=== PATIENT | female | born 2000 | race Caucasian/White ===

== ENCOUNTER 2019-02-12 20:57 | Observation (INO) | payer BC ==
[2019-02-12] MEDS ORDERED: Ondansetron 4 MG/2 ML SDV IVPUSH ONE (21:33)
[2019-02-12] MEDS ORDERED: HYDROmorphone 1 MG/ML Syringe IVPUSH STA (21:33)
--- NOTE | 2019-02-12 21:39 | EDM.PDOC ---
ED HPI GENERAL MEDICAL PROBLEM - General Chief Complaint: Abdominal Pain Stated Complaint: ABDOMINAL PAIN Time Seen by Provider: 02/12/19 21:10 Source of Information: Reports: Patient History Limitations: Reports: No Limitations - History of Present Illness INITIAL COMMENTS - FREE TEXT/NARRATIVE: Ms. Baig is a very pleasant 18-year-old woman with no chronic medical issues and no past surgical history, who states that she developed sharp right upper quadrant and epigastric pain around noon today, after eating ramen noodles for lunch around 11:30 to noon. The pain waxed and waned over the course of the day , then increased, along with having nausea and vomiting, after eating tacos from 16:30 to 17:00. Since then, the patient has been experiencing far right upper abdominal pain, sharp in character, with occasional radiation across her upper abdomen. At present, she states that the pain is dull, with occasional sharp exacerbations whenever she takes a deep breath or lies completely supine. No recent fever. She has had watery diarrhea since 17:00 today, but no recent constipation. No urinary symptoms or gross hematuria. No prior similar symptoms. LMP 01/26/2019 or 01/27/2019. The patient has not eaten since 17:00 today. The patient does not have a PCP. She has not received an influenza vaccine this season, but agreed to receive one here. Right Abdomen Pain Score (Numeric/FACES): 3 - Related Data Allergies Allergy/AdvReac Type Severity Reaction Status Date / Time No Known Allergies Allergy Verified 02/12/19 21:07 Home Meds: Home Meds . [No Known Home Meds] 02/12/19 [History] Past Medical History Endocrine/Metabolic History: Reports: Obesity/BMI 30+ Social & Family History - Tobacco Use Smoking Status *Q: Never Smoker - Caffeine Use Caffeine Use: Reports: Coffee, Soda - Alcohol Use Alcohol Use History: Yes Alcohol Use Frequency: Socially - Recreational Drug Use Recreational Drug Use: No - Living Situation & Occupation Living situation: Reports: Single, with Family Occupation: Student ([employer]) ED ROS GENERAL - Review of Systems Review Of Systems: Comprehensive ROS is negative, except as noted in HPI. ED EXAM, GI/ABD - Physical Exam Exam: See Below Exam Limited By: No Limitations General Appearance: Alert, WD/WN, No Apparent Distress Eyes: Bilateral: Normal Appearance, EOMI Ears: Normal External Exam, Hearing Grossly Normal Nose: Normal Inspection Throat/Mouth: Normal Inspection, Normal Lips, Normal Voice, No Airway Compromise Head: Atraumatic, Normocephalic Neck: Normal Inspection, Full Range of Motion Respiratory/Chest: No Respiratory Distress, Lungs Clear, Normal Breath Sounds, No Accessory Muscle Use Cardiovascular: Normal Peripheral Pulses, Regular Rate, Rhythm, No Gallop, No JVD, No Murmur, No Rub GI/Abdominal Exam: Normal Bowel Sounds, Soft, No Organomegaly, No Distention, No Abnormal Bruit, No Mass, Tender (Far-right upper quadrant only. Caldera's sign negative. Nontender elsewhere.) (Female) Exam: Deferred Rectal (Female) Exam: Deferred Back Exam: Normal Inspection, Full Range of Motion. No: CVA Tenderness (L), CVA Tenderness (R) Extremities: Normal Inspection, Normal Range of Motion, No Pedal Edema, Normal Capillary Refill Neurological: Alert, Oriented, Normal Cognition, No Motor/Sensory Deficits Psychiatric: Normal Affect Skin Exam: Warm, Dry, Intact, Normal Color, No Rash Course - Vital Signs Last Recorded V/S: Last Vital Signs Temp 36.8 C 02/12/19 21:05 Pulse 111 H 02/12/19 21:05 Resp 16 02/12/19 21:05 BP 138/82 02/12/19 21:05 Pulse Ox 99 02/12/19 21:05 - Orders/Labs/Meds Orders: Active Orders 24 hr Category Date Time Status Influenza Vaccine Charge [RC] .DISCHARGE Care 02/12/19 21:35 Active Abdomen Pelvis w Cont [CT] Stat Exams 02/12/19 21:33 Taken Sodium Chloride 0.9% [Normal Saline] 1,000 ml Med 02/12/19 21:45 Active IV ASDIRECTED Sodium Chloride 0.9% [Saline Flush] Med 02/12/19 21:41 Active 10 ml FLUSH ONETIME PRN Medication Orders Sodium Chloride (Normal Saline) 1,000 mls @ 150 mls/hr IV ASDIRECTED LIBERTAD Last Admin: 02/12/19 21:46 Dose: 150 mls/hr Sodium Chloride (Saline Flush) 10 ml FLUSH ONETIME PRN PRN Reason: KEEP VEIN OPEN Last Admin: 02/12/19 23:17 Dose: 10 ml Admin: 02/12/19 22:59 Dose: 10 ml Labs: Laboratory Tests 02/12/19 02/12/19 02/12/19 Range/Units 21:44 21:44 22:39 WBC 16.64 H (3.98-10.04) K/mm3 RBC 5.21 (3.98-5.22) M/mm3 Hgb 15.4 (11.2-15.7) gm/dl Hct 44.2 (34.1-44.9) % MCV 84.8 (79.4-94.8) fl MCH 29.6 (25.6-32.2) pg MCHC 34.8 (32.2-35.5) g/dl RDW Std Deviation 35.6 L (36.4-46.3) fL Plt Count 185 (182-369) K/mm3 MPV 9.9 (9.4-12.3) fl Neutrophils % (Manual) 78 H (40-60) % Band Neutrophils % 10 (0-10) % Lymphocytes % (Manual) 10 L (20-40) % Atypical Lymphs % 0 % Monocytes % (Manual) 2 (2-10) % Eosinophils % (Manual) 0 L (0.7-5.8) % Basophils % (Manual) 0 L (0.1-1.2) Platelet Estimate Adequate RBC Morph Comment Normal Sodium 141 (136-145) mEq/L Potassium 3.6 (3.5-5.1) mEq/L Chloride 103 (98-107) mEq/L Carbon Dioxide 26 (21-32) mEq/L Anion Gap 15.6 H (5-15) BUN 10 (7-18) mg/dL Creatinine 0.8 (0.55-1.02) mg/dL Est Cr Clr Drug Dosing 109.08 mL/min Estimated GFR (MDRD) > 60 (>60) mL/min BUN/Creatinine Ratio 12.5 L (14-18) Glucose 100 (74-106) mg/dL Calcium 9.0 (8.5-10.1) mg/dL Total Bilirubin 0.6 (0.2-1.0) mg/dL AST 18 (15-37) U/L ALT 27 (14-59) U/L Alkaline Phosphatase 61 (46-116) U/L Total Protein 8.1 (6.4-8.2) g/dl Albumin 4.5 (3.4-5.0) g/dl Globulin 3.6 gm/dL Albumin/Globulin Ratio 1.3 (1-2) Lipase 109 (73-393) U/L Urine Color Yellow (Yellow) Urine Appearance Clear (Clear) Urine pH 6.5 (5.0-8.0) Ur Specific [place] > or = 1.030 (1.005-1.030) Urine Protein Negative (Negative) Urine Glucose (UA) Negative (Negative) Urine Ketones 3+ H (Negative) Urine Occult Blood Negative (Negative) Urine Nitrite Negative (Negative) Urine Bilirubin Negative (Negative) Urine Urobilinogen 1.0 (0.2-1.0) Ur Leukocyte Esterase Negative (Negative) Urine RBC 0-5 (0-5) /hpf Urine WBC 0-5 (0-5) /hpf Ur Squamous Epith Cells 0-5 (0-5) /hpf Urine Bacteria Few (FEW) /hpf Urine Mucus Few (FEW) /hpf Urine HCG, Qual (NEGATIVE) 02/12/19 Range/Units 22:39 WBC (3.98-10.04) K/mm3 RBC (3.98-5.22) M/mm3 Hgb (11.2-15.7) gm/dl Hct (34.1-44.9) % MCV (79.4-94.8) fl MCH (25.6-32.2) pg MCHC (32.2-35.5) g/dl RDW Std Deviation (36.4-46.3) fL Plt Count (182-369) K/mm3 MPV (9.4-12.3) fl Neutrophils % (Manual) (40-60) % Band Neutrophils % (0-10) % Lymphocytes % (Manual) (20-40) % Atypical Lymphs % % Monocytes % (Manual) (2-10) % Eosinophils % (Manual) (0.7-5.8) % Basophils % (Manual) (0.1-1.2) Platelet Estimate RBC Morph Comment Sodium (136-145) mEq/L Potassium (3.5-5.1) mEq/L Chloride (98-107) mEq/L Carbon Dioxide (21-32) mEq/L Anion Gap (5-15) BUN (7-18) mg/dL Creatinine (0.55-1.02) mg/dL Est Cr Clr Drug Dosing mL/min Estimated GFR (MDRD) (>60) mL/min BUN/Creatinine Ratio (14-18) Glucose (74-106) mg/dL Calcium (8.5-10.1) mg/dL Total Bilirubin (0.2-1.0) mg/dL AST (15-37) U/L ALT (14-59) U/L Alkaline Phosphatase (46-116) U/L Total Protein (6.4-8.2) g/dl Albumin (3.4-5.0) g/dl Globulin gm/dL Albumin/Globulin Ratio (1-2) Lipase (73-393) U/L Urine Color (Yellow) Urine Appearance (Clear) Urine pH (5.0-8.0) Ur Specific [place] (1.005-1.030) Urine Protein (Negative) Urine Glucose (UA) (Negative) Urine Ketones (Negative) Urine Occult Blood (Negative) Urine Nitrite (Negative) Urine Bilirubin (Negative) Urine Urobilinogen (0.2-1.0) Ur Leukocyte Esterase (Negative) Urine RBC (0-5) /hpf Urine WBC (0-5) /hpf Ur Squamous Epith Cells (0-5) /hpf Urine Bacteria (FEW) /hpf Urine Mucus (FEW) /hpf Urine HCG, Qual Negative (NEGATIVE) Meds: Medications Generic Name Dose Route Start Last Admin Trade Name Fremarcio PRN Reason Stop Dose Admin Sodium Chloride 1,000 mls @ 150 mls/hr 02/12/19 21:45 02/12/19 21:46 Normal Saline IV 150 mls/hr ASDIRECTED LIBERTAD Administration Sodium Chloride 10 ml 02/12/19 21:41 02/12/19 23:17 Saline Flush FLUSH 10 ml ONETIME PRN Administration KEEP VEIN OPEN Discontinued Medications Generic Name Dose Route Start Last Admin Trade Name Freq PRN Reason Stop Dose Admin Diatrizoate Meglum/Diatrizoate Sod 60 ml 02/12/19 21:41 02/12/19 22:59 Gastrografin 37% PO 02/12/19 21:42 60 ml ONETIME ONE Administration Hydromorphone HCl 0.5 mg 02/12/19 21:33 02/12/19 21:47 Dilaudid IVPUSH 02/12/19 21:34 0.5 mg ONETIME STA Administration Influenza Virus Vaccine 1 each 02/12/19 21:34 Pharmacy To Dose - Influenza Vaccine IM 02/12/19 21:35 ONETIME ONE Influenza Virus Vaccine 60 mcg 02/12/19 22:00 02/12/19 23:14 Fluzone Quad [id number] Syringe IM 02/12/19 22:01 60 mcg .ONCE ONE Administration Iopamidol 100 ml 02/12/19 21:41 02/12/19 22:59 Isovue-300 (61%) IVPUSH 02/12/19 21:42 100 ml ONETIME ONE Administration Ondansetron HCl 4 mg 02/12/19 21:33 02/12/19 21:46 Zofran IVPUSH 02/12/19 21:34 4 mg ONETIME ONE Administration - Re-Assessments/Exams Free Text/Narrative Re-Assessment/Exam: 02/12/19 21:35 The patient's history and physical examination are most consistent with her pain being due to cholecystitis, although other possibilities, including appendicitis, an unusual presentation of a ruptured ovarian cyst, or epiploic appendagitis are possibilities. Since it has only been about 4-1/2 hours since the patient last ate, an ultrasound of the right upper quadrant is not possible at this time. I have therefore ordered a CT of the abdomen and pelvis with oral and IV contrast, along with blood work, a urinalysis, and a urine test. In the meantime, the patient will be given IV Dilaudid, IV Zofran, and IV fluid. 02/12/19 23:20 Contacted by the [facility] Radiologist, who informed me that he believes the patient has appendicitis. Formal report is pending. 02/12/19 23:23 The patient's CBC is remarkable for a WBC count of 16.64 with 10% bandemia and 78% neutrophilia. The remainder of her CBC is unremarkable. Her CMP is unremarkable. Her lipase is within normal limits at 109. Her urinalysis is unremarkable. Her urine test is unremarkable. CT of the abdomen and pelvis with oral and IV contrast is read by [facility] as "Findings are suspicious for appendicitis. No evidence for perforation, small bowel obstruction, or abscess." 02/12/19 23:[address] Urias at 23:28. He asked that we give the patient 1 g of IV Invanz, then admit her to the hospital, where she will remain NPO, receive pain medication and IV Zofran as needed, along with IV fluid. He will see her, and presumably take her to the OR, in the morning. 02/12/19 23:35 The above was discussed with the patient and her boyfriend. She is agreeable to the plan. Departure - Departure Time of Disposition: 23:36 Disposition: Refer to Observation Condition: Good Clinical Impression: Acute appendicitis - Discharge Information *PRESCRIPTION DRUG MONITORING PROGRAM REVIEWED*: Not Applicable *COPY OF PRESCRIPTION DRUG MONITORING REPORT IN PATIENT MALU: Not Applicable Referrals: Jemal Urias MD [Physician] - Sepsis Event Note - Evaluation Sepsis Screening Result: No Definite Risk - Focused Exam Vital Signs: Vital Signs Temp Pulse Resp BP Pulse Ox 02/12/19 21:05 36.8 C 111 H 16 138/82 99 Date Exam was Performed: 02/12/19 Time Exam was Performed: 23:31 - My Orders Last 24 Hours: My Active Orders 02/12/19 21:33 Abdomen Pelvis w Cont [CT] Stat 02/12/19 21:35 Influenza Vaccine Charge [RC] .DISCHARGE 02/12/19 21:41 Sodium Chloride 0.9% [Saline Flush] 10 ml FLUSH ONETIME PRN 02/12/19 21:45 Sodium Chloride 0.9% [Normal Saline] 1,000 ml IV ASDIRECTED - Assessment/Plan Last 24 Hours: My Active Orders 02/12/19 21:33 Abdomen Pelvis w Cont [CT] Stat 02/12/19 21:35 Influenza Vaccine Charge [RC] .DISCHARGE 02/12/19 21:41 Sodium Chloride 0.9% [Saline Flush] 10 ml FLUSH ONETIME PRN 02/12/19 21:45 Sodium Chloride 0.9% [Normal Saline] 1,000 ml IV ASDIRECTED
[2019-02-12] MEDS ORDERED: Diatrizoate Meglumine/Diatrizoate Sodium 37% 120 ML Bottle PO ONE (21:41)
[2019-02-12] MEDS ORDERED: Iopamidol 612 MG/ML 100 ML Bottle IVPUSH ONE (21:41)
[2019-02-12] MEDS: Sodium Chloride 0.9% 1,000 ML IV SCH (21:46)
[2019-02-12] MEDS ORDERED: FLU Vacc QS2019-20(6MOS+)/PF 60 MCG/0.5 ML SYRINGE IM ONE (22:00)
[2019-02-12] MEDS: Sodium Chloride 0.9% 10 ML Syringe FLUSH PRN ×2 (22:59→23:17)
[2019-02-12] MEDS ORDERED: Ertapenem 1 GM in Sodium Chloride 0.9% 50 ML IV STA (23:31)
[2019-02-13] MEDS ORDERED: Ondansetron 4 MG/2 ML SDV IVPUSH PRN (00:29)
[2019-02-13] MEDS: HYDROmorphone 0.5 MG/0.5 ML Syringe IVPUSH PRN ×2 (01:02→09:07)
[2019-02-13] MEDS: Sodium Chloride 0.9% 1,000 ML IV SCH (04:26)
--- NOTE | 2019-02-13 07:49 | CT ---
CT abdomen and pelvis Technique: Multiple axial sections were obtained from above the dome of the diaphragm inferiorly through the pubic symphysis. Intravenous contrast and oral contrast was utilized. Comparison: No previous abdominal imaging is available. Findings: Portions of the proximal appendix are increased in size with mild surrounding inflammatory change. Distal appendix appears normal in size. Findings suspicious for early appendicitis. Other findings: Visualized lung bases show nothing acute. Liver and spleen appear within normal limits. Pancreas is within normal limits. Gallbladder contains no calcified gallstones. Kidneys show symmetric contrast enhancement. No hydronephrosis or mass is appreciated. Small low density finding noted within the mid left kidney measuring 3 mm which is too small to characterize but most likely represents a small cyst. Adrenal glands show no nodule. Gallbladder contains no calcified gallstones. Aorta shows no aneurysm. No retroperitoneal adenopathy or mesenteric abnormality is seen. Slightly prominent free fluid noted within the pelvis. No additional pelvic abnormality is appreciated. Bone window settings were reviewed. No acute osseous finding is appreciated. Impression: 1. Findings suspicious for early appendicitis. Please correlate if this matches the patient's clinical symptoms. 2. Fair amount of free fluid within the pelvis. This may be reactive fluid from the presumed early appendicitis, this could also represent nonvisualized ruptured adnexal cyst. 3. Other finding believed to be incidental as noted above. Diagnostic code #5 This report was dictated in [place] Standard Time I agree with preliminary report from [facility], finalized on 02/13/19, 12:20 AM Central Time
--- NOTE | 2019-02-13 08:21 | PCM.CONS ---
H&P History of Present Illness - General Date of Service: 02/13/19 Admit Problem/Dx: Admission Diagnosis/Problem Admission Diagnosis/Problem Acute appendicitis Source of Information: Patient History Limitations: Reports: No Limitations - History of Present Illness Initial Comments - Free Text/Narative: The patient started having right sided abdominal pain yesterday afternoon. Pain was cramping, sharp, 5/10 initially. At 5 am she ate and her pain worsened and was associated with nausea and vomiting. The pain at this time was more localized in the right lower abdomen. Denies any prior surgeries. Patient presented to the ED where WBC was 16K, CT was concerning for acute appendicitis. I was consulted and recommended IV abx and appendectomy. Onset of Symptoms: Reports: Sudden Duration of Symptoms: Reports: Hour(s):, Getting Worse Location: Reports: Abdomen Quality: Reports: Sharp Severity: Moderate Improves with: Reports: Immobilization Worsens with: Reports: Eating, Movement Associated Symptoms: Reports: Nausea/Vomiting Right Abdomen Pain Score (Numeric/FACES): 5 - Related Data Allergies/Adverse Reactions: Allergies Allergy/AdvReac Type Severity Reaction Status Date / Time No Known Allergies Allergy Verified 02/13/19 00:43 Home Medications: Home Meds . [No Known Home Meds] 02/12/19 [History] Past Medical History - Past Health History Medical/Surgical History: Denies Medical/Surgical History Endocrine/Metabolic History: Reports: Obesity/BMI 30+ Social & Family History - Family History Cardiac: Reports: Hypertension Endocrine/Metabolic: Reports: Diabetes, type II Other Endocrine/Metabolic Family History: mom's side of family - Tobacco Use Smoking Status *Q: Never Smoker Second Hand Smoke Exposure: No - Caffeine Use Caffeine Use: Reports: Coffee, Tea - Recreational Drug Use Recreational Drug Use: No - Living Situation & Occupation Living situation: Reports: Single, with Family Occupation: Student ([employer]) H&P Review of Systems - Review of Systems: Review Of Systems: See Below General: Reports: No Symptoms HEENT: Reports: No Symptoms Pulmonary: Reports: No Symptoms Cardiovascular: Reports: No Symptoms Gastrointestinal: Reports: Abdominal Pain Genitourinary: Reports: No Symptoms Musculoskeletal: Reports: No Symptoms Skin: Reports: No Symptoms Psychiatric: Reports: No Symptoms Neurological: Reports: No Symptoms Exam - Exam Exam: See Below - Vital Signs Vital Signs: Last Vital Signs Temp 98.2 F 02/13/19 03:23 Pulse 103 H 02/13/19 03:23 Resp 20 02/13/19 03:23 BP 116/61 02/13/19 03:23 Pulse Ox 96 02/13/19 03:23 Weight: 101.741 kg - Exam General: Alert, Oriented, Cooperative, Mild Distress HEENT: Conjunctiva Clear Cardiovascular: Regular Rate, Regular Rhythm, Normal S1, Normal S2 GI/Abdominal Exam: Normal Bowel Sounds, Soft, No Organomegaly, No Distention, Tender (RLQ) - Patient Data Lab Results Last 24 hrs: Laboratory Results - last 24 hr 02/12/19 02/12/19 02/12/19 Range/Units 21:44 21:44 22:39 WBC 16.64 H (3.98-10.04) K/mm3 RBC 5.21 (3.98-5.22) M/mm3 Hgb 15.4 (11.2-15.7) gm/dl Hct 44.2 (34.1-44.9) % MCV 84.8 (79.4-94.8) fl MCH 29.6 (25.6-32.2) pg MCHC 34.8 (32.2-35.5) g/dl RDW Std Deviation 35.6 L (36.4-46.3) fL Plt Count 185 (182-369) K/mm3 MPV 9.9 (9.4-12.3) fl Neutrophils % (Manual) 78 H (40-60) % Band Neutrophils % 10 (0-10) % Lymphocytes % (Manual) 10 L (20-40) % Atypical Lymphs % 0 % Monocytes % (Manual) 2 (2-10) % Eosinophils % (Manual) 0 L (0.7-5.8) % Basophils % (Manual) 0 L (0.1-1.2) Platelet Estimate Adequate RBC Morph Comment Normal Sodium 141 (136-145) mEq/L Potassium 3.6 (3.5-5.1) mEq/L Chloride 103 (98-107) mEq/L Carbon Dioxide 26 (21-32) mEq/L Anion Gap 15.6 H (5-15) BUN 10 (7-18) mg/dL Creatinine 0.8 (0.55-1.02) mg/dL Est Cr Clr Drug Dosing 109.08 mL/min Estimated GFR (MDRD) > 60 (>60) mL/min BUN/Creatinine Ratio 12.5 L (14-18) Glucose 100 (74-106) mg/dL Calcium 9.0 (8.5-10.1) mg/dL Total Bilirubin 0.6 (0.2-1.0) mg/dL AST 18 (15-37) U/L ALT 27 (14-59) U/L Alkaline Phosphatase 61 (46-116) U/L Total Protein 8.1 (6.4-8.2) g/dl Albumin 4.5 (3.4-5.0) g/dl Globulin 3.6 gm/dL Albumin/Globulin Ratio 1.3 (1-2) Lipase 109 (73-393) U/L Urine Color Yellow (Yellow) Urine Appearance Clear (Clear) Urine pH 6.5 (5.0-8.0) Ur Specific [place] > or = 1.030 (1.005-1.030) Urine Protein Negative (Negative) Urine Glucose (UA) Negative (Negative) Urine Ketones 3+ H (Negative) Urine Occult Blood Negative (Negative) Urine Nitrite Negative (Negative) Urine Bilirubin Negative (Negative) Urine Urobilinogen 1.0 (0.2-1.0) Ur Leukocyte Esterase Negative (Negative) Urine RBC 0-5 (0-5) /hpf Urine WBC 0-5 (0-5) /hpf Ur Squamous Epith Cells 0-5 (0-5) /hpf Urine Bacteria Few (FEW) /hpf Urine Mucus Few (FEW) /hpf Urine HCG, Qual (NEGATIVE) 02/12/19 Range/Units 22:39 WBC (3.98-10.04) K/mm3 RBC (3.98-5.22) M/mm3 Hgb (11.2-15.7) gm/dl Hct (34.1-44.9) % MCV (79.4-94.8) fl MCH (25.6-32.2) pg MCHC (32.2-35.5) g/dl RDW Std Deviation (36.4-46.3) fL Plt Count (182-369) K/mm3 MPV (9.4-12.3) fl Neutrophils % (Manual) (40-60) % Band Neutrophils % (0-10) % Lymphocytes % (Manual) (20-40) % Atypical Lymphs % % Monocytes % (Manual) (2-10) % Eosinophils % (Manual) (0.7-5.8) % Basophils % (Manual) (0.1-1.2) Platelet Estimate RBC Morph Comment Sodium (136-145) mEq/L Potassium (3.5-5.1) mEq/L Chloride (98-107) mEq/L Carbon Dioxide (21-32) mEq/L Anion Gap (5-15) BUN (7-18) mg/dL Creatinine (0.55-1.02) mg/dL Est Cr Clr Drug Dosing mL/min Estimated GFR (MDRD) (>60) mL/min BUN/Creatinine Ratio (14-18) Glucose (74-106) mg/dL Calcium (8.5-10.1) mg/dL Total Bilirubin (0.2-1.0) mg/dL AST (15-37) U/L ALT (14-59) U/L Alkaline Phosphatase (46-116) U/L Total Protein (6.4-8.2) g/dl Albumin (3.4-5.0) g/dl Globulin gm/dL Albumin/Globulin Ratio (1-2) Lipase (73-393) U/L Urine Color (Yellow) Urine Appearance (Clear) Urine pH (5.0-8.0) Ur Specific [place] (1.005-1.030) Urine Protein (Negative) Urine Glucose (UA) (Negative) Urine Ketones (Negative) Urine Occult Blood (Negative) Urine Nitrite (Negative) Urine Bilirubin (Negative) Urine Urobilinogen (0.2-1.0) Ur Leukocyte Esterase (Negative) Urine RBC (0-5) /hpf Urine WBC (0-5) /hpf Ur Squamous Epith Cells (0-5) /hpf Urine Bacteria (FEW) /hpf Urine Mucus (FEW) /hpf Urine HCG, Qual Negative (NEGATIVE) Result Diagrams: 02/12/19 21:44 02/12/19 21:44 Sepsis Event Note - Evaluation Sepsis Screening Result: Sepsis Risk - Focused Exam Vital Signs: Vital Signs Temp Temp Pulse Pulse Resp BP BP 02/13/19 03:23 98.2 F 103 H 20 116/61 02/13/19 00:40 99.7 F 108 H 24 H 132/72 02/12/19 21:05 98.2 F 111 H 16 138/82 Pulse Ox 01/06/20 03:23 96 02/13/19 00:40 98 02/12/19 21:05 99 Date Exam was Performed: 02/13/19 Time Exam was Performed: 08:15 Consult PN Assessment/Plan Problem List Initiated/Reviewed/Updated: No My Orders Last 24 Hours: My Active Orders 02/13/19 00:29 Bedrest Bathroom Privileges [RC] ASDIRECTED HYDROmorphone [Dilaudid] 0.5 mg IVPUSH Q2H PRN Ondansetron [Zofran] 4 mg IVPUSH Q6HR PRN Resuscitation Status Routine 02/13/19 Breakfast Nothing per Oral Now Diet [DIET] Plan: Patient has acute appendicitis. I recommended laparoscopic appendectomy, possible open. Risks, benefits and alternatives were discussed, all questions were answered and informed consent was obtained.
--- NOTE | 2019-02-13 09:22 | PCM.PREANE ---
Preanesthetic Assessment - Anesthesia/Transfusion/Family Hx Anesthesia History: No Prior Anesthesia Family History of Anesthesia Reaction: No Transfusion History: No Prior Transfusion(s) - Review of Systems General: No Symptoms Pulmonary: No Symptoms Cardiovascular: No Symptoms Gastrointestinal: Abdominal Pain Neurological: No Symptoms Other: Reports: None - Physical Assessment NPO Status Date: 02/12/19 NPO Status Time: 23:00 Vital Signs: Last Vital Signs Temp 36.8 C 02/13/19 03:23 Pulse 103 H 02/13/19 03:23 Resp 20 02/13/19 03:23 BP 116/61 02/13/19 03:23 Pulse Ox 96 02/13/19 03:23 Height: 1.7 m Weight: 101.741 kg ASA Class: 1 Mental Status: Alert & Oriented x3 Airway Class: Mallampati = 2 Dentition: Reports: Normal Dentition Thyro-Mental Finger Breadths: 3 Mouth Opening Finger Breadths: 3 ROM/Head Extension: Full Lungs: Clear to Auscultation, Normal Respiratory Effort - Lab Values: Laboratory Last Values WBC 16.64 K/mm3 (3.98-10.04) H 02/12/19 21:44 RBC 5.21 M/mm3 (3.98-5.22) 02/12/19 21:44 Hgb 15.4 gm/dl (11.2-15.7) 02/12/19 21:44 Hct 44.2 % (34.1-44.9) 02/12/19 21:44 MCV 84.8 fl (79.4-94.8) 02/12/19 21:44 MCH 29.6 pg (25.6-32.2) 02/12/19 21:44 MCHC 34.8 g/dl (32.2-35.5) 02/12/19 21:44 RDW Std Deviation 35.6 fL (36.4-46.3) L 02/12/19 21:44 Plt Count 185 K/mm3 (182-369) 02/12/19 21:44 MPV 9.9 fl (9.4-12.3) 02/12/19 21:44 Neutrophils % (Manual) 78 % (40-60) H 02/12/19 21:44 Band Neutrophils % 10 % (0-10) 02/12/19 21:44 Lymphocytes % (Manual) 10 % (20-40) L 02/12/19 21:44 Atypical Lymphs % 0 % 02/12/19 21:44 Monocytes % (Manual) 2 % (2-10) 02/12/19 21:44 Eosinophils % (Manual) 0 % (0.7-5.8) L 02/12/19 21:44 Basophils % (Manual) 0 (0.1-1.2) L 02/12/19 21:44 Platelet Estimate Adequate 02/12/19 21:44 RBC Morph Comment Normal 02/12/19 21:44 Sodium 141 mEq/L (136-145) 02/12/19 21:44 Potassium 3.6 mEq/L (3.5-5.1) 02/12/19 21:44 Chloride 103 mEq/L (98-107) 02/12/19 21:44 Carbon Dioxide 26 mEq/L (21-32) 02/12/19 21:44 Anion Gap 15.6 (5-15) H 02/12/19 21:44 BUN 10 mg/dL (7-18) 02/12/19 21:44 Creatinine 0.8 mg/dL (0.55-1.02) 02/12/19 21:44 Est Cr Clr Drug Dosing 109.08 mL/min 02/12/19 21:44 Estimated GFR (MDRD) > 60 mL/min (>60) 02/12/19 21:44 BUN/Creatinine Ratio 12.5 (14-18) L 02/12/19 21:44 Glucose 100 mg/dL (74-106) 02/12/19 21:44 Calcium 9.0 mg/dL (8.5-10.1) 02/12/19 21:44 Total Bilirubin 0.6 mg/dL (0.2-1.0) 02/12/19 21:44 AST 18 U/L (15-37) 02/12/19 21:44 ALT 27 U/L (14-59) 02/12/19 21:44 Alkaline Phosphatase 61 U/L (46-116) 02/12/19 21:44 Total Protein 8.1 g/dl (6.4-8.2) 02/12/19 21:44 Albumin 4.5 g/dl (3.4-5.0) 02/12/19 21:44 Globulin 3.6 gm/dL 02/12/19 21:44 Albumin/Globulin Ratio 1.3 (1-2) 02/12/19 21:44 Lipase 109 U/L (73-393) 02/12/19 21:44 Urine Color Yellow (Yellow) 02/12/19 22:39 Urine Appearance Clear (Clear) 02/12/19 22:39 Urine pH 6.5 (5.0-8.0) 02/12/19 22:39 Ur Specific [place] > or = 1.030 (1.005-1.030) 02/12/19 22:39 Urine Protein Negative (Negative) 02/12/19 22:39 Urine Glucose (UA) Negative (Negative) 02/12/19 22:39 Urine Ketones 3+ (Negative) H 02/12/19 22:39 Urine Occult Blood Negative (Negative) 02/12/19 22:39 Urine Nitrite Negative (Negative) 02/12/19 22:39 Urine Bilirubin Negative (Negative) 02/12/19 22:39 Urine Urobilinogen 1.0 (0.2-1.0) 02/12/19 22:39 Ur Leukocyte Esterase Negative (Negative) 02/12/19 22:39 Urine RBC 0-5 /hpf (0-5) 02/12/19 22:39 Urine WBC 0-5 /hpf (0-5) 02/12/19 22:39 Ur Squamous Epith Cells 0-5 /hpf (0-5) 02/12/19 22:39 Urine Bacteria Few /hpf (FEW) 02/12/19 22:39 Urine Mucus Few /hpf (FEW) 02/12/19 22:39 Urine HCG, Qual Negative (NEGATIVE) 02/12/19 22:39 - Allergies Allergies/Adverse Reactions: Allergies Allergy/AdvReac Type Severity Reaction Status Date / Time No Known Allergies Allergy Verified 02/13/19 00:43 - Acknowledgements Anesthesia Type Planned: General Anesthesia Pt an Appropriate Candidate for the Planned Anesthesia: Yes Alternatives and Risks of Anesthesia Discussed w Pt/Guardian: Yes Pt/Guardian Understands and Agrees with Anesthesia Plan: Yes PreAnesthesia Questionnaire - Past Health History Medical/Surgical History: Denies Medical/Surgical History HEENT History: Reports: None Cardiovascular History: Reports: None Respiratory History: Reports: None Gastrointestinal History: Reports: None Genitourinary History: Reports: None LMP (Approximate): Other (See Below) (HCG 20 negative) Musculoskeletal History: Reports: None Neurological History: Reports: None Psychiatric History: Reports: None Endocrine/Metabolic History: Reports: Obesity/BMI 30+ Hematologic History: Reports: None Immunologic History: Reports: None Oncologic (Cancer) History: Reports: None - SUBSTANCE USE Smoking Status *Q: Never Smoker Second Hand Smoke Exposure: No Recreational Drug Use History: No - HOME MEDS Home Medications: Home Meds . [No Known Home Meds] 02/12/19 [History] - CURRENT (IN HOUSE) MEDS Current Meds: Current Medications Hydromorphone HCl (Dilaudid) 0.5 mg IVPUSH Q2H PRN PRN Reason: Pain (moderate 4-6) Last Admin: 02/13/19 09:07 Dose: 0.5 mg Sodium Chloride (Normal Saline) 1,000 mls @ 150 mls/hr IV ASDIRECTED [facility] Last Admin: 02/13/19 04:26 Dose: 150 mls/hr Ondansetron HCl (Zofran) 4 mg IVPUSH Q6HR PRN PRN Reason: Nausea Sodium Chloride (Saline Flush) 10 ml FLUSH ONETIME PRN PRN Reason: KEEP VEIN OPEN Last Admin: 02/12/19 23:17 Dose: 10 ml Discontinued Medications Diatrizoate Meglum/Diatrizoate Sod (Gastrografin 37%) 60 ml PO ONETIME ONE Stop: 02/12/19 21:42 Last Admin: 02/12/19 22:59 Dose: 60 ml Hydromorphone HCl (Dilaudid) 0.5 mg IVPUSH ONETIME STA Stop: 02/12/19 21:34 Last Admin: 02/12/19 21:47 Dose: 0.5 mg Ertapenem 1 gm/ Sodium (Chloride) 50 mls @ 100 mls/hr IV ONETIME STA Stop: 02/13/19 00:00 Last Admin: 02/12/19 23:48 Dose: 100 mls/hr Influenza Virus Vaccine (Pharmacy To Dose - Influenza Vaccine) 1 each IM ONETIME ONE Stop: 02/12/19 21:35 Influenza Virus Vaccine (Fluzone Quad Syringe) 60 mcg IM .ONCE ONE Stop: 02/12/19 22:01 Last Admin: 02/12/19 23:14 Dose: 60 mcg Iopamidol (Isovue-300 (61%)) 100 ml IVPUSH ONETIME ONE Stop: 02/12/19 21:42 Last Admin: 02/12/19 22:59 Dose: 100 ml Ondansetron HCl (Zofran) 4 mg IVPUSH ONETIME ONE Stop: 02/12/19 21:34 Last Admin: 02/12/19 21:46 Dose: 4 mg
[2019-02-13] MEDS ORDERED: Ondansetron 4 MG/2 ML SDV ONE (11:01)
[2019-02-13] MEDS ORDERED: Rocuronium 100 MG/10 ML MDV ONE (11:01)
[2019-02-13] MEDS ORDERED: Lidocaine 1% 4 ML ONE (11:01)
[2019-02-13] MEDS ORDERED: Lactated Ringers 1,000 ML ONE (11:01)
[2019-02-13] MEDS ORDERED: Propofol 200 MG/20 ML SDV ONE (11:02)
[2019-02-13] MEDS ORDERED: fentaNYL 250 MCG/5 ML SDV ONE (11:02)
[2019-02-13] MEDS ORDERED: Midazolam 1 MG/ML 2 ML SDV ONE (11:02)
[2019-02-13] MEDS: Lidocaine 1% 50 ML MDV ONE ×2 (11:37→11:56)
[2019-02-13] MEDS ORDERED: Ketorolac 30 MG/ML SDV ONE ×2 (12:20→12:35)
[2019-02-13] MEDS ORDERED: fentaNYL 100 MCG/2 ML SDV ONE (12:26)
[2019-02-13] MEDS ORDERED: Neostigmine Methylsulfate 1 MG/ML 5 ML Syringe ONE (12:31)
--- NOTE | 2019-02-13 12:49 | PCM.POSTAN ---
POST ANESTHESIA ASSESSMENT - MENTAL STATUS Mental Status: Alert, Oriented - VITAL SIGNS Vital Signs: Last Vital Signs Temp 36.6 C 02/13/19 08:58 Pulse 85 02/13/19 08:58 Resp 16 02/13/19 08:58 BP 124/60 02/13/19 08:58 Pulse Ox 100 02/13/19 08:58 - RESPIRATORY Respiratory Status: Respiratory Rate WNL, Airway Patent, O2 Saturation Stable, Supplemental Oxygen - CARDIOVASCULAR CV Status: Pulse Rate WNL, Blood Pressure Stable - GASTROINTESTINAL GI Status: No Symptoms - PAIN Pain Score: 3 - POST OP HYDRATION Hydration Status: Adequate & Stable - OBSERVATIONS Free Text/Narrative:: no anesthesia complications noted
[2019-02-13] MEDS: fentaNYL 100 MCG/2 ML SDV IVPUSH PRN ×2 (13:00→14:50)
--- NOTE | 2019-02-13 13:07 | OR ---
DATE OF OPERATION: 02/13/2019 SURGEON: Jemal Urias MD PREOPERATIVE DIAGNOSIS: Acute appendicitis. POSTOPERATIVE DIAGNOSIS: Acute appendicitis. OPERATION PERFORMED: Laparoscopic appendectomy. ESTIMATED BLOOD LOSS: 20 mL. ANESTHESIA: General endotracheal. COMPLICATIONS: None. INDICATION AND CONSENT: The patient is a 18-year-old who had right lower quadrant abdominal pain since yesterday with nausea and vomiting. The patient presented to the emergency department where labs revealed a white count of 16. CT scan confirmed acute appendicitis. I saw the patient this morning. I confirmed on exam right lower quadrant tenderness consistent with appendicitis and offered the patient laparoscopic appendectomy, possible open. We discussed risks, benefits, and alternatives. Risks discussed including infection, both deep and superficial, injury to the bowel, reaction to medications, and the patient asked all questions all of which were answered, and informed consent was obtained. DESCRIPTION OF PROCEDURE: The patient was taken to the operating room, placed in supine position. Following induction of general endotracheal anesthesia, the patient was appropriately padded. The abdomen was then prepped and draped in the usual sterile fashion and then a formal time-out was performed prior to the start of the procedure. We began the procedure by making an infraumbilical incision. The subcutaneous tissue was dissected down bluntly with a Luann and then the umbilical stalk was grasped with a Vitor and elevated. Veress needle was entered. Abdomen insufflated to 15 mmHg. Then, a 10 Optiview trocar was inserted under direct visualization of laparoscopy. Then, visual inspection of the abdomen did not reveal any injuries to the Veress needle or trocar insertion. Two additional 5-mm trocars were placed, 1 in the left lower quadrant, another 1 in the suprapubic area. Then, there was some inflammatory fluid in the pelvis region. The patient was turned into Trendelenburg position and left-sided down. The appendix was found in the right abdomen, elevated and released from the lateral attachments sharply with scissors. Once this was done, a small window was made in the appendiceal base and a blue load was used to transect the appendix. The appendix was clearly inflamed. It was unclear if the appendix was perforated. Then, a white load was used to transect the mesoappendix. Two loads were used for this using Endo-CONNIE stapler as well and the appendix was placed in the EndoCatch bag. The abdomen was inspected. The inflammatory fluid that was slightly thick was suctioned from the pelvis. The staple lines were inspected and there was no bleeding. The patient was leveled out. The appendix was removed and the fascia at the umbilical site was closed with 0 Vicryl stitches using Gwyn-Neena device, and then skin at all incision sites was closed with 4-0 Monocryl sutures and Dermabond was applied. The patient tolerated the procedure well. At the end of the procedure, all instruments, sharps, and sponges were counted and found to be correct x2. The patient was awoken, extubated, and taken to the PACU in stable condition. The plan is for the patient to be discharged later today. The patient will have weight restriction of lifting no more than 20 pounds for 2 weeks. The patient will come back to the clinic in 2 weeks for postop check. MMODAL /[id number] MTDuLis
[2019-02-13] MEDS ORDERED: traMADol 50 MG Tab PO PRN (13:10)
--- NOTE | 2019-02-13 14:49 | PCM48HPAN ---
Post Anesthesia Note - EVALUATION WITHIN 48HRS OF ANESTHETIC Vital Signs in Normal Range: Yes Patient Participated in Evaluation: Yes Respiratory Function Stable: Yes Airway Patent: Yes Cardiovascular Function Stable: Yes Hydration Status Stable: Yes Pain Control Satisfactory: Yes Nausea and Vomiting Control Satisfactory: Yes Mental Status Recovered: Yes Vital Signs: Last Vital Signs Temp 37.0 C 02/13/19 14:15 Pulse 79 02/13/19 14:45 Resp 16 02/13/19 14:45 BP 124/59 L 02/13/19 14:45 Pulse Ox 98 02/13/19 14:45 - COMMENTS/OBSERVATIONS Free Text/Narrative:: no anesthesia complications noted
--- NOTE | 2019-02-14 12:34 | PCM.DCSUM1 ---
Discharge Summary - Hospital Course Free Text/Narrative:: Patient presented with acute appendicitis and underwent lap appendectomy without any complications. She was discharged from PACU. HPI Initial Comments: She presented to right sided abdominal pain, nausea and vomiting. WBC was 16 and diagnosed with acute appendicitis. Diagnosis: Stroke: No - Discharge Data Discharge Date: 02/13/19 Discharge Disposition: Home, Self-Care 01 Condition: Good - Referral to Home Health Primary Care Physician: PCP None - Patient Instructions Diet: Heart Healthy Diet Activity: As Tolerated, No Lifting Over 20 Pounds Driving: Do Not Drive Driving, Other: For 24 hours Showering/Bathing: May Shower Wound/Incision Care: Keep Operative Site/Wound Site Clean and Dry Notify Provider of: Fever, Increased Pain, Swelling and Redness, Nausea and/or Vomiting Other/Special Instructions: Take Tylenol or Ibuprofen as needed for pain. If pain becomes worse, take the prescribed opioid pain medication. - Discharge Plan *PRESCRIPTION DRUG MONITORING PROGRAM REVIEWED*: No *COPY OF PRESCRIPTION DRUG MONITORING REPORT IN PATIENT MALU: No Prescriptions/Med Rec: traMADol [Ultram] 50 mg PO Q6H PRN 3 Days #12 tab PRN Reason: Abdominal Pain Home Medications: Home Meds traMADol [Ultram] 50 mg PO Q6H PRN 3 Days #12 tab 02/13/19 [Rx] Oxygen Therapy Mode: Room Air Patient Handouts: Laparoscopic Appendectomy, Adult, Care After, Tramadol tablets Referrals: Rhonda Ledbetter NP [Nurse Practitioner] - (Please make an appointment to see Rhonda Ledbetter NP at [facility] 2 weeks from your surgery today.) - Discharge Summary/Plan Comment DC Time >30 min.: No - General Info Date of Service: 02/13/19 Admission Dx/Problem (Free Text: Admission Diagnosis/Problem Admission Diagnosis/Problem Acute appendicitis - Patient Data Vitals - Most Recent: Last Vital Signs Temp 98.6 F 02/13/19 14:15 Pulse 77 02/13/19 15:00 Resp 16 02/13/19 15:00 BP 107/67 02/13/19 15:00 Pulse Ox 95 02/13/19 15:00 Weight - Most Recent: 101.741 kg I&O - Last 24 hours: Intake & Output 02/13/19 02/14/19 02/14/19 22:59 06:59 14:59 Intake Total 540 Balance 540 Med Orders - Current: Current Medications Discontinued Medications Diatrizoate Meglum/Diatrizoate Sod (Gastrografin 37%) 60 ml PO ONETIME ONE Stop: 02/12/19 21:42 Last Admin: 02/12/19 22:59 Dose: 60 ml Fentanyl (Sublimaze) Confirm Administered Dose 250 mcg .ROUTE .STK-MED ONE Stop: 02/13/19 11:03 Fentanyl (Sublimaze) Confirm Administered Dose 100 mcg .ROUTE .STK-MED ONE Stop: 02/13/19 12:27 Fentanyl (Sublimaze) 50 mcg IVPUSH Q5M PRN PRN Reason: Pain Last Admin: 02/13/19 14:50 Dose: 50 mcg Glycopyrrolate () Confirm Administered Dose 1 mg .ROUTE .STK-MED ONE Stop: 02/13/19 12:32 Hydromorphone HCl (Dilaudid) 0.5 mg IVPUSH ONETIME STA Stop: 02/12/19 21:34 Last Admin: 02/12/19 21:47 Dose: 0.5 mg Hydromorphone HCl (Dilaudid) 0.5 mg IVPUSH Q2H PRN PRN Reason: Pain (moderate 4-6) Last Admin: 02/13/19 09:07 Dose: 0.5 mg Sodium Chloride (Normal Saline) 1,000 mls @ 150 mls/hr IV ASDIRECTED [facility] Last Admin: 02/13/19 04:26 Dose: 150 mls/hr Ertapenem 1 gm/ Sodium (Chloride) 50 mls @ 100 mls/hr IV ONETIME STA Stop: 02/13/19 00:00 Last Admin: 02/12/19 23:48 Dose: 100 mls/hr Lidocaine HCl (Xylocaine-Mpf 1%) Confirm Administered Dose 4 mls @ as directed .ROUTE .STK-MED ONE Stop: 02/13/19 11:02 Lactated Ringer's (Ringers, Lactated) Confirm Administered Dose 1,000 mls @ as directed .ROUTE .STK-MED ONE Stop: 02/13/19 11:02 Influenza Virus Vaccine (Pharmacy To Dose - Influenza Vaccine) 1 each IM ONETIME ONE Stop: 02/12/19 21:35 Influenza Virus Vaccine (Fluzone Quad Syringe) 60 mcg IM .ONCE ONE Stop: 02/12/19 22:01 Last Admin: 02/12/19 23:14 Dose: 60 mcg Iopamidol (Isovue-300 (61%)) 100 ml IVPUSH ONETIME ONE Stop: 02/12/19 21:42 Last Admin: 02/12/19 22:59 Dose: 100 ml Ketorolac Tromethamine (Toradol) Confirm Administered Dose 30 mg .ROUTE .STK- MED ONE Stop: 02/13/19 12:21 Ketorolac Tromethamine (Toradol) Confirm Administered Dose 30 mg .ROUTE .STK- MED ONE Stop: 02/13/19 12:36 Lidocaine HCl (Xylocaine 1%) Confirm Administered Dose 50 ml .ROUTE .STK-MED ONE Stop: 02/13/19 11:05 Last Admin: 02/13/19 11:37 Dose: 25 ml Midazolam HCl (Versed 1 Mg/Ml) Confirm Administered Dose 2 mg .ROUTE .STK-MED ONE Stop: 02/13/19 11:03 Neostigmine Methylsulfate (Neostigmine) Confirm Administered Dose 5 mg .ROUTE .STK-MED ONE Stop: 02/13/19 12:32 Ondansetron HCl (Zofran) 4 mg IVPUSH ONETIME ONE Stop: 02/12/19 21:34 Last Admin: 02/12/19 21:46 Dose: 4 mg Ondansetron HCl (Zofran) 4 mg IVPUSH Q6HR PRN PRN Reason: Nausea Ondansetron HCl (Zofran) Confirm Administered Dose 4 mg .ROUTE .STK-MED ONE Stop: 02/13/19 11:02 Propofol (Diprivan 20 Ml) Confirm Administered Dose 200 mg .ROUTE .STK-MED ONE Stop: 02/13/19 11:03 Rocuronium [place] (Zemuron) Confirm Administered Dose 100 mg .ROUTE .STK-MED ONE Stop: 02/13/19 11:02 Sodium Chloride (Saline Flush) 10 ml FLUSH ONETIME PRN PRN Reason: KEEP VEIN OPEN Last Admin: 02/12/19 23:17 Dose: 10 ml Tramadol HCl (Ultram) 50 mg PO Q6H PRN PRN Reason: Pain Last Admin: 02/13/19 13:14 Dose: 50 mg - Exam General: Reports: Alert, Oriented, Cooperative HEENT: Reports: Pupils Equal Lungs: Reports: Clear to Auscultation Cardiovascular: Reports: Regular Rate, Regular Rhythm GI/Abdominal Exam: Soft, No Distention, No Abnormal Bruit, Tender (appropriately ) Discharge Operative/Procedures - Procedures Performed Operations: Laparoscopic appendectomy LP Indication: CSF analysis Arterial Line Indication: hemodynamic monitoring Chest Tube Indication: pneumothorax Thoracentesis Indication: pleural effusion Paracentesis Indication: ascites
== END 2019-02-13 15:38 | disposition home or self-care (01) ==
LOC: JD.ED 20:57 → JD.MS 23:54
PROVIDERS: ADMIT Surgery; ATTEND Surgery
DX: K35.30 Acute appendicitis with localized peritonitis, without perforation or gangrene (principal); E66.9 Obesity, unspecified; Z68.35 Body mass index [BMI] 35.0-35.9, adult
CPT/HCPCS: 36415; 44970; 74177; 80053; 81001; 81025; 83690; 85007; 85027; 90471; 90686; 96365; 96375; 99285; A9270; J1170; J1335; J1885; J2001; J2250; J2405; J2704; J2710; J3010; J7030; J7050; J7120; Q9963; Q9967; 00840; 96361; G0008; G0378